=== PATIENT | male | born 1970 | race African-American/Black ===

== ENCOUNTER 2024-06-10 11:30 | Inpatient (IN) | payer OTHER ==
[2024-06-10 12:25] VITALS: BMI 21.5
[2024-06-10] MEDS ORDERED: BENZONATATE 200 MG CAPSULE PO PRN (13:29)
[2024-06-10] MEDS ORDERED: NALOXONE (NARCAN) HCL 4 MG/0.1 ML SPRAY NS PRN (13:29)
[2024-06-10] MEDS ORDERED: MAG HYDROX/AL HYDROX/SIMETH 30 ML UNIT-DOSE CUP PO PRN (13:29)
[2024-06-10] MEDS ORDERED: LOPERAMIDE HCL 2 MG CAPSULE PO PRN (13:29)
[2024-06-10] MEDS ORDERED: BENZOCAINE/MENTHOL (CHLORASEPTIC ) LOZENGE MM PRN (13:29)
[2024-06-10] MEDS ORDERED: DICYCLOMINE HCL 10 MG CAPSULE PO PRN (13:29)
[2024-06-10] MEDS ORDERED: BISMUTH SUBSALICYLATE 524 MG/30 ML PO PRN (13:29)
[2024-06-10] MEDS ORDERED: IBUPROFEN 400 MG TABLET (FP) PO PRN (13:29)
[2024-06-10] MEDS ORDERED: MAGNESIUM HYDROX 2400MG/30ML ORAL SUSPENSION 30 ML CUP PO PRN (13:29)
[2024-06-10] MEDS ORDERED: POLYETHYLENE GLYCOL (HEALTHYLAX) 3350 17 GM PACKET PO PRN (13:29)
[2024-06-10] MEDS ORDERED: ACETAMINOPHEN 325 MG TABLET (FP) PO PRN (13:29)
[2024-06-10] MEDS ORDERED: ONDANSETRON *ODT* 4 MG TABLET SL PRN (13:29)
[2024-06-10] MEDS ORDERED: guaiFENesin 600 MG TABLET.ER (FP) PO PRN (13:29)
[2024-06-10] MEDS ORDERED: NALOXONE HCL 0.4 MG/ML VIAL IM PRN (13:29)
[2024-06-10] MEDS: PRENATAL VITAMINS W/ FOLIC ACID TABLET (FP) PO SCH (15:41)
[2024-06-10] MEDS: METHOCARBAMOL 500 MG TABLET PO PRN (17:36)
[2024-06-10] MEDS: MELATONIN 5 MG TABLETS PO SCH (22:41)
[2024-06-10] MEDS: hydrOXYzine PAMOATE 25 MG CAPSULE (FP) PO PRN (22:41)
[2024-06-10] MEDS: THIAMINE 100 MG TABLET PO SCH (22:42)
[2024-06-11] MEDS: IBUPROFEN 600 MG TABLET (FP) PO PRN (10:18)
[2024-06-11 10:56] LABS: HEMATOCRIT 34.8 % (35.4-49); HEMOGLOBIN 11.9 GM/dL (11.7-16.9); MCH 33.7 pg (25.7-33.7); MCHC 34.1 g/dl (32.0-35.9); MEAN CELL VOLUME 98.8 fl (80-96); PLATELET COUNT 174 10^3/uL (134-434); RBC 3.52 M/mm3 (4.00-5.60); RDW 14.2 % (11.9-15.9); WHITE BLOOD COUNT 4.2 K/mm3 (4.0-10.0)
[2024-06-11 10:57] LABS: CHLORIDE 110 mmol/L (98-107); POTASSIUM 4.3 mmol/L (3.5-5.1); SODIUM 143 mmol/L (136-145)
[2024-06-11 11:00] LABS: ALBUMIN 3.2 g/dl (3.4-5.0); ANION GAP 8 mmol/L (4-13); BLOOD UREA NITROGEN 8.8 mg/dL (7-18); CALCIUM 8.9 mg/dL (8.5-10.1); CO2 25 mmol/L (21-32); GLUCOSE,RANDOM 104 mg/dL (74-106)
[2024-06-11 11:03] LABS: SGOT/AST 13 U/L (15-37); SGPT/ALT 16 U/L (13-61)
[2024-06-11 11:04] LABS: CREATININE 0.7 mg/dL (0.55-1.3)
[2024-06-11 11:05] LABS: ALK PHOS 69 U/L (45-117); BILIRUBIN,TOTAL 0.4 mg/dL (0.2-1); TOT PROT 6.7 g/dl (6.4-8.2)
[2024-06-12] MEDS: amLODIPine BESYLATE 2.5 MG TABLET (FP) PO SCH (10:29)
[2024-06-12 16:47] VITALS: BP 155/83; PULSE 68; RESP 16; TEMP 98.4
== END 2024-06-12 17:31 | disposition other institution (70) | DRG 775 ==
LOC: YASAS 11:30 → Y6N 14:54
PROVIDERS: ADMIT Allergy & Immunology; ATTEND Surgery
PROC: HZ2ZZZZ Detoxification Services for Substance Abuse Treatment (ICD-10-PCS; principal; 2024-06-10)
DX: F10.20 Alcohol dependence, uncomplicated (principal); I10 Essential (primary) hypertension; Z59.01 Sheltered homelessness
CPT/HCPCS: 36415; 80053; 80305; 80307; 82140; 85027; 86780; 87811; 93005; 93010

== ENCOUNTER 2024-06-12 17:37 | Inpatient (IN) | payer OTHER ==
[2024-06-12] MEDS ORDERED: IBUPROFEN 400 MG TABLET (FP) PO PRN (19:10)
[2024-06-12] MEDS ORDERED: IBUPROFEN 600 MG TABLET (FP) PO PRN (19:10)
[2024-06-12] MEDS ORDERED: guaiFENesin 600 MG TABLET.ER (FP) PO PRN (19:10)
[2024-06-12] MEDS ORDERED: NALOXONE (NARCAN) HCL 4 MG/0.1 ML SPRAY NS PRN (19:10)
[2024-06-12] MEDS ORDERED: NALOXONE HCL 0.4 MG/ML VIAL IM PRN (19:10)
[2024-06-12] MEDS ORDERED: MAGNESIUM HYDROX 2400MG/30ML ORAL SUSPENSION 30 ML CUP PO PRN (19:10)
[2024-06-12] MEDS ORDERED: BENZONATATE 200 MG CAPSULE PO PRN (19:10)
[2024-06-12] MEDS ORDERED: LOPERAMIDE HCL 2 MG CAPSULE PO PRN (19:10)
[2024-06-12] MEDS ORDERED: POLYETHYLENE GLYCOL (HEALTHYLAX) 3350 17 GM PACKET PO PRN (19:10)
[2024-06-12] MEDS ORDERED: MAG HYDROX/AL HYDROX/SIMETH 30 ML UNIT-DOSE CUP PO PRN (19:10)
[2024-06-12] MEDS ORDERED: BENZOCAINE/MENTHOL (CHLORASEPTIC ) LOZENGE MM PRN (19:10)
[2024-06-12] MEDS: MELATONIN 5 MG TABLETS PO SCH (21:36)
[2024-06-12] MEDS: THIAMINE 100 MG TABLET PO SCH (21:36)
[2024-06-13 09:04] LABS: CHLORIDE 108 mmol/L (98-107); POTASSIUM 4.5 mmol/L (3.5-5.1); SODIUM 140 mmol/L (136-145)
[2024-06-13 09:07] LABS: HEMATOCRIT 33.9 % (35.4-49); HEMOGLOBIN 11.6 GM/dL (11.7-16.9); MCH 34.1 pg (25.7-33.7); MEAN CELL VOLUME 100.1 fl (80-96); MEAN PLT VOLUME 7.7 fl (7.5-11.1); PLATELET COUNT 179 10^3/uL (134-434); RBC 3.39 M/mm3 (4.00-5.60); RDW 14.2 % (11.9-15.9); WHITE BLOOD COUNT 4.9 K/mm3 (4.0-10.0)
[2024-06-13 09:08] LABS: ALBUMIN 3.5 g/dl (3.4-5.0); ANION GAP 2 mmol/L (4-13); BLOOD UREA NITROGEN 11.8 mg/dL (7-18); CALCIUM 9.2 mg/dL (8.5-10.1); CO2 30 mmol/L (21-32); GLUCOSE,RANDOM 105 mg/dL (74-106)
[2024-06-13 09:10] LABS: CREATININE 0.8 mg/dL (0.55-1.3); SGPT/ALT 16 U/L (13-61)
[2024-06-13 09:12] LABS: BILIRUBIN,TOTAL 0.4 mg/dL (0.2-1); SGOT/AST 10 U/L (15-37); TOT PROT 6.8 g/dl (6.4-8.2)
[2024-06-13 09:13] LABS: ALK PHOS 64 U/L (45-117)
[2024-06-13] MEDS: amLODIPine BESYLATE 2.5 MG TABLET (FP) PO SCH (10:26)
[2024-06-13] MEDS: PRENATAL VITAMINS W/ FOLIC ACID TABLET (FP) PO SCH (10:26)
[2024-06-13 11:08] LABS: SYPHILIS W/ RPR CONF NON-REACTIVE (NONREACTIVE)
[2024-06-13 13:47] LABS: PH,URINE 5.5 (5.0-8.0); URINE APPEARANCE CLEAR; URINE BILIRUBIN NEGATIVE (NEGATIVE); URINE COLOR YELLOW; URINE GLUCOSE (UA) NEGATIVE (NEGATIVE); URINE KETONE NEGATIVE (NEGATIVE); URINE LEUK ESTERASE NEGATIVE (NEGATIVE); URINE NITRITE NEGATIVE (NEGATIVE); URINE PROTEIN NEGATIVE (NEGATIVE); URINE UROBILINOGEN 0.2 mg/dL (0.2-1.0)
[2024-06-18] MEDS: hydrOXYzine PAMOATE 25 MG CAPSULE (FP) PO PRN (21:40)
[2024-06-20 22:07] VITALS: BMI 21.5
[2024-06-21] MEDS: NALTREXONE HCL 50 MG TABLET PO SCH (09:59)
[2024-07-04] MEDS: ACETAMINOPHEN 325 MG TABLET (FP) PO PRN (21:21)
[2024-07-06] MEDS ORDERED: BENZONATATE 200 MG CAPSULE PO PRN (11:17)
[2024-07-06] MEDS ORDERED: guaiFENesin 600 MG TABLET.ER (FP) PO PRN (11:17)
[2024-07-06] MEDS: LACTULOSE 20 GM/30 ML UDC (FOR ORAL USE ONLY) PO SCH (14:17)
[2024-07-07] MEDS: P-EPHED 60MG/TRIPROLIDI 2.5MG TABLET PO PRN (10:02)
[2024-07-08 06:46] VITALS: TEMP 97.8
[2024-07-08 10:01] VITALS: BP 120/78; PULSE 90; RESP 16
== END 2024-07-08 10:10 | disposition home or self-care (01) | DRG 772 ==
LOC: YASAS 17:37 → Y3NR 17:39 → Y3W 06-13 12:02
PROVIDERS: ADMIT Allergy & Immunology; ATTEND Psychiatry & Neurology Pain Medicine
PROC: HZ42ZZZ Group Counseling for Substance Abuse Treatment, Cognitive-Behavioral (ICD-10-PCS; principal; 2024-06-12)
DX: F10.20 Alcohol dependence, uncomplicated (principal); I10 Essential (primary) hypertension; E72.20 Disorder of urea cycle metabolism, unspecified; K59.00 Constipation, unspecified; R05.9 Cough, unspecified; Z56.0 Unemployment, unspecified; Z59.01 Sheltered homelessness
CPT/HCPCS: 0241U-QW; 36415; 80053; 80307; 81003; 82140; 85027; 86780; 86803; 93005; 93010